=== PATIENT | male | born 1990 | race Caucasian/White ===

== ENCOUNTER → 2023-06-26 08:41 | Outpatient (CLI) | payer OTHER, SELFPAY ==
--- NOTE | ~2023-06-26 | CT_ITS ---
CT of the Abdomen and Pelvis: Indication: Constipation Technique: 2.5 mm axial scans were obtained through the abdomen and pelvis following intravenous adm inistration of 100 cc of Omnipaque 350. Dose reduction technique was used on this scan by utilizing a utomated exposure control and iterative reconstruction technique. The dose-length product (DLP) was 6 77.89 mGy-cm. Findings: Scans through the lung bases are unremarkable. The liver, spleen, pancreas, gallbladder, adrenals and kidneys are within normal limits. No evidence of aortic aneurysm. No lymphadenopathy. No bowel obstruction or bowel wall thickening. There is no evidence to suggest acute appendicitis. Images through the pelvis were performed. Urinary bladder unremarkable. Prostate gland and seminal ve sicles are unremarkable. No ascites. Impression: No significant abnormality seen. Reviewed, dictated and finalized at [facility]. [employer] Impression: No significant abnormality seen.
== END ==
PROVIDERS: PCP Nurse Practitioner Adult Health; Visit Provider Nurse Practitioner Adult Health
DX: K59.00 Constipation, unspecified (principal)
CPT/HCPCS: 74177; Q9967